=== PATIENT | female | born 1960 | race Caucasian/White ===

== ENCOUNTER → 2021-09-02 | Outpatient (CLI) | payer OTHER ==
[~2021-09-02] VITALS: Ht 175.3 cm; Wt 76.7 kg
[~2021-09-02] MED LIST: ASA81BEC PO; FENOFIBRATE150 MG PO; FLUOXETINE HCL20 M1 PO; LEVOTHYROXINE125 MC1 PO; PRAVACHOL40 MG PO
[2021-09-02 10:39] LABS: HEMATOCRIT 38.5 % (37.0-47.0); MCHC 33.7 g/dL (28.0-37.0); MCV 91.8 fL (80.0-100.0); RBC 4.19 mil/uL (4.20-5.00); RDW 12.5 % (10.5-14.5); WBC 4.5 thou/uL (4.0-11.0)
[2021-09-02 10:46] VITALS: BP 126/61
[2021-09-02 10:48] LABS: CALCIUM 9.7 mg/dL (8.5-10.1); CREATININE 0.9 mg/dL (0.6-1.0)
--- NOTE | 2021-09-02 17:53 | CATHLAB ---
[facility] [place] [address] INVASIVE PROCEDURE REPORT Name: JEFFERY GUZMAN Room #: REG LOLIS [place].#: [id number] Admission: 09/02/21 Attend Phys: Kris Ryder MD, Discharge: Date of : 60 Report #: [id number] THIS REPORT FOR: cc: Regulo Hutchison Timothy J. Mancuso, Gerald M. MD [facility] ~ APPROVED REPORT Study performed: 09/02/2021 13:49:52 Patient Details Patient Status: Out-Patient Room #: The patient is a 60 year-old female Event Personnel Kris Ryder Security Systems Engineer, Gloria Rascon RN RN, Jenifer Yang Monitor, Jocelyn Ledesma RTR Scrub Procedures Performed Art Access - R femoral artery* Left Heart Cath w/or w/o Coronaries [id number] [facility] Aortogram Abdominal Peripheral Angio 350308 Hemostasis w/ Mynx 77809 Initial Mod Sed Same Phys/QHP Gr5y [id number] 34051 Mod Sed Same Phys/QHP Ea 002243 Indication Chest pain Procedure Narrative The Right Groin^ was infiltrated with 1% Lidocaine subcutaneous anesthesia. A PINNACLE 6FR Sheath #[id number] sheath was inserted into the RFA^. Coronary angiography was performed using coronary diagnostic catheters. The right coronary system was accessed and visualized with a JR4 catheter. The left coronary system was accessed and visualized with a JL4 catheter. The left ventricle was accessed and visualized with a STR PIG catheter. Left ventriculogram was performed in 30 degree projection. There was no hematoma. Intraoperative Conscious Sedation Sedation start time: 1413 Case end Time: 1440 Fentanyl 75 mcg Versed 1 mg Fluoro Time: 1.10 minutes [facility] [address] [place] [address] INVASIVE PROCEDURE REPORT Name: JEFFERY GUZMAN Room #: [facility]#: [id number] Admission: 09/02/21 Attend Phys: Kris Ryder, Discharge: Date of : 60 Report #: [id number] Dose: DAP 3309.90 cGycm2 1440 mGy Contrast Type and Amount: Omnipaque 146 ml Hemodynamics The aortic pressure is 133/59 mmHg with a mean of 66 mmHg. The left ventricular pressure is 125/6 mmHg with a mean of mmHg. The left ventricular end diastolic pressure is 20 mmHg. Conclusion #1 normal left ventricular size and systolic function EF 60%. #2 abdominal aorta is mildly ectatic distally but no aneurysm formation. #3 left main is free of disease giving rise to LAD and circumflex. #4 LAD extends around the apex with minimal irregularity is somewhat of a small vessel distally. #5 small nondominant circumflex. Widely patent #6 dominant right coronary with no significant occlusive disease. Recommendations and plan: Continue aggressive risk factor modification. No indication for coronary intervention. <ELECTRONICALLY SIGNED> By: Kris Ryder MD, FACC 09/02/211751 51 51 Kris Ryder MD, FACC /INF
--- NOTE | 2021-09-05 07:31 | EKG ---
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
== END | disposition home or self-care (01) ==
LOC: CATH 09:19
PROVIDERS: ATTEND Internal Medicine Cardiovascular Disease
DX: R07.9 Chest pain, unspecified (principal); I25.10 Atherosclerotic heart disease of native coronary artery without angina pectoris; I77.811 Abdominal aortic ectasia; E78.5 Hyperlipidemia, unspecified; E78.1 Pure hyperglyceridemia; E03.9 Hypothyroidism, unspecified; F17.210 Nicotine dependence, cigarettes, uncomplicated; Z98.890 Other specified postprocedural states; Z79.899 Other long term (current) drug therapy; Z90.49 Acquired absence of other specified parts of digestive tract; Z90.710 Acquired absence of both cervix and uterus; Z79.82 Long term (current) use of aspirin; Z88.2 Allergy status to sulfonamides